=== PATIENT | male | born 1955 | race Caucasian/White ===

== ENCOUNTER → 2018-05-27 | Outpatient (CLI) | payer MEDICARE ==
--- NOTE | 2018-05-27 16:35 | RAD ---
Right groin ultrasound, 05/27/2018: HISTORY: Groin pain The area of clinical concern was carefully scanned. Several small benign-appearing lymph nodes are noted. No abnormal fluid collection or significant mass is seen. IMPRESSION: No significant abnormality is detected. Electronically signed by: Esdras Aggarwal MD (05/27/2018 4:31 PM) [facility]
== END | disposition home or self-care (01) ==
LOC: US 14:39
PROVIDERS: ATTEND Surgery
DX: R10.31 Right lower quadrant pain (principal)
CPT/HCPCS: 76881